=== PATIENT | male | born 1940 | race African-American/Black ===

== ENCOUNTER → 2016-06-16 | Outpatient (CLI) | payer MEDICARE, MEDICAID | END | disposition home or self-care (01) | LOC: CT 09:31 | PROVIDERS: ATTEND Internal Medicine Cardiovascular Disease | DX: M54.2 Cervicalgia (principal); N28.1 Cyst of kidney, acquired; R22.1 Localized swelling, mass and lump, neck | CPT/HCPCS: 70490; 71250 ==

== ENCOUNTER → 2016-06-30 | Day surgery (SDC) | payer MEDICARE, MEDICAID ==
[~2016-06-30] MED LIST: LIDOCAINE HCL 1% 20ML VIAL (Pyxis) INJ ONE; SODIUM BICARBONATE 4.2% 5 MEQ/10 ML DISP.SYRIN IV ONE
== END | disposition home or self-care (01) ==
LOC: RAD 12:17
PROVIDERS: ATTEND Internal Medicine Cardiovascular Disease
DX: R22.1 Localized swelling, mass and lump, neck (principal)
CPT/HCPCS: 10022; 76942; 88104; 88305; 88312; J3490

== ENCOUNTER 2017-01-13 15:56 | Emergency (ER) | payer MEDICARE, MEDICAID ==
[~2017-01-13] VITALS: Ht 182.9 cm; Wt 91.0 kg
[2017-01-13 17:40] LABS: BASOPHILS % 0.5 % (0.0-2.0); EOSINOPHILS % 2.3 % (0.0-5.0); HEMATOCRIT. 45.8 % (42.0-52.0); HEMOGLOBIN. 15.6 g/dL (14.0-18.0); LYMPHOCYTES % 42.7 % (20.0-50.0); MEAN CORPUSCULAR HEMOGLOBIN 35.3 pg (28.0-32.0); MEAN CORPUSCULAR VOLUME 103.4 fL (80.0-94.0); MONOCYTES % 9.9 % (2.0-8.0); NEUTROPHILS % 44.6 % (40.0-76.0); PLATELET 173 x1000/uL (130-400); RED BLOOD CELL COUNT 4.43 mill/uL (4.7-6.1); RED CELL DISTRIBUTION WIDTH 13.1 % (11.6-14.6)
[2017-01-13 17:43] LABS: CARBON DIOXIDE 29 mEq/L (21-32); CHLORIDE 109 mEq/L (98-107)
[2017-01-13 17:50] LABS: ETHANOL BLOOD < 10 mg/dL; TROPONIN I 0.02 ng/mL (0.00-0.04)
[2017-01-13 17:51] LABS: PHENOBARBITAL < 2.1 ug/mL (15.0-40.0)
[2017-01-13 19:06] LABS: CLARITY URINE CLEAR (CLEAR); COLOR URINE YELLOW (YELLOW); GLUCOSE URINE NEGATIVE (NEGATIVE); KETONES URINE NEGATIVE (NEGATIVE); LEUKOCYTE ESTERASE URINE 2+ (NEGATIVE); NITRITE URINE POSITIVE (NEGATIVE); OCCULT BLOOD URINE TRACE (NEGATIVE); PROTEIN URINE NEGATIVE (NEGATIVE); SPECIFIC GRAVITY URINE 1.023 (1.005-1.030); UROBILINOGEN URINE 0.2 E.U./dL (0.2-1.0)
[2017-01-13 19:19] LABS: *AMPHETAMINES SCREEN URINE NEGATIVE (NEGATIVE); *BARBITURATES SCREEN URINE NEGATIVE (NEGATIVE); *BENZODIAZEPINES SCREEN URINE NEGATIVE (NEGATIVE); *COCAINE SCREEN URINE NEGATIVE (NEGATIVE); CANNABINOID URINE SCREEN NEGATIVE (NEGATIVE); METHADONE URINE SCREEN NEGATIVE (NEGATIVE); OPIATES URINE SCREEN NEGATIVE (NEGATIVE); PHENCYCLIDINE URINE SCREEN NEGATIVE (NEGATIVE)
[2017-01-13 19:30] VITALS: BP 130/76
== END 2017-01-13 20:18 | disposition home or self-care (01) ==
LOC: ER 16:16
DX: R56.9 Unspecified convulsions (principal); R55 Syncope and collapse; N39.0 Urinary tract infection, site not specified; I25.2 Old myocardial infarction
CPT/HCPCS: 36415; 70450; 71010; 80053; 80184; 80185; 80305; 81001; 83605; 84484; 85025; 85610; 87077; 87086; 87186; 99285; G0482